=== PATIENT | male | born 1955 | race Caucasian/White ===

== ENCOUNTER → 2018-12-11 | Day surgery (SDC) | payer BC, MEDICARE ==
--- NOTE | 2018-12-10 09:51 | Diagnostic Imaging Report ---
EXAMINATION: CHEST 2 VIEWS INDICATION: Pre-op. COMPARISON: None FINDINGS: TUBES and LINES: None. LUNGS: Lungs are well inflated. There is no evidence of pneumonia or pulmonary edema. Small rounded opacity overlying the right lower lung likely represents nipple shadow. PLEURA: No pleural effusion or pneumothorax. HEART AND MEDIASTINUM: The cardiomediastinal silhouette is unremarkable. BONES AND SOFT TISSUES: No acute osseous abnormality. UPPER ABDOMEN: No free air under the diaphragm. IMPRESSION: No acute radiographic abnormality. Signed by: Dr. Kenyon Napoles MD on 12/10/2018 9:47 AM
[2018-12-10 10:11] LABS: BASOPHILS # (AUTO) 0.1 (0.0-0.1); BASOPHILS % 0.6 % (0.0-1.0); EOSINOPHILS # (AUTO) 0.3 (0.0-0.4); EOSINOPHILS % 2.6 % (0.0-6.0); HEMATOCRIT 43.1 % (38.2-49.6); HEMOGLOBIN 14.6 g/dL (14.0-18.0); LYMPHOCYTES # (AUTO) 2.1 (1.0-3.2); MEAN CORPUSCULAR HEMOGLOBIN 32.2 pg (28-32); MEAN CORPUSCULAR HGB CONC 33.9 g/dL (31-35); MEAN CORPUSCULAR VOLUME 95.1 fL (81-99); MONOCYTES # (AUTO) 0.9 (0.2-0.8); MONOCYTES % 8.7 % (4.4-11.3); NEUTROPHILS # (AUTO) 7.5 (2.1-6.9); NEUTROPHILS % 68.8 % (38.7-80.0); PLATELET COUNT 248 x10e3/uL (140-360); RED BLOOD COUNT 4.53 x10e6/uL (4.3-5.7)
[2018-12-10 10:57] LABS: ANION GAP 14.6 mmol/L (8-16); BLOOD UREA NITROGEN 16 mg/dL (7-26); BUN/CREATININE RATIO 14 (6-25); CALCIUM 10.3 mg/dL (8.4-10.2); CARBON DIOXIDE 28 mmol/L (22-29); CHLORIDE 102 mmol/L (98-107); CREATININE, SERUM 1.12 mg/dL (0.72-1.25); EST GLOMERULAR FILTRATION RATE > 60 ML/MIN (60-); GLUCOSE 107 mg/dL (74-118); POTASSIUM 4.6 mmol/L (3.5-5.1); SODIUM 140 mmol/L (136-145)
[~2018-12-11] MED LIST: ASPIR 8181 MG PO; ATORVASTATIN CA20 MG PO; BUPIVACAINE HCL 0.5% INJ 30 ML VIAL INJ ONE; CARVEDILOL12.5 MG PO; CEFAZOLIN SOD 1 GM/NS 50ML 50 ML IV ONE; CLOPIDOGREL75 MG PO; DEXAMETHASONE SOD PHOS INJ 4 MG/ML VIAL ONE; EPHEDRINE SULFATE INJ 50 MG/10 ML SYR ONE; FENTANYL CITRATE/PF 100MCG/2 ML INJ ONE; GLYCOPYRROLATE INJ 1MG/ 5 ML SYR ONE; IRON PO; LIDOCAINE HCL 2% LOCAL INJ 5 ML SDV VIAL INJ ONE; MIDAZOLAM HCL 2 MG/2 ML VIAL ONE; MULTIVITAMINS1 EAC7 PO; MUPIROCIN 2% OINT 22 GM TUBE ONE; ONDANSETRON HCL INJ 2MG/ML 2ML 2 MG/ML VIAL ONE; PROPOFOL IV EMULSION 10 MG/ML 20 ML VIAL ONE; SEVOFLURANE INHAL SOLN 250 ML PEN BTL ONE; TRIBENZOR 40-11 EACH PO
--- OUTSIDE RECORDS SUMMARY | 2018-12-11 06:45 | XMS REPORT ---
Author Author [facility] Address Unknown Phone Unavailable Care Team Providers Care Computer Support Analyst Name Role Phone JACQUELIN BLANC Unavailable Unavailable Problems This patient has no known problems. Allergies, Adverse Reactions, Alerts This patient has no known allergies or adverse reactions. Medications This patient has no known medications. Results Test Description Test Time Test Comments Text Results Atomic Results Result Comments CHEST 2 VIEWS 2018-12-10 09:42:00 [place] [address] Patient Name: ALIDA WATTERS MR #: [id number] : 1955 Age/Sex: 63/M Req #: [id number] [facility] Physician: Ordered by: JACQUELIN BLANC MD Report #: [id number] Location: OR Room/Bed: Procedure: [id number] DX/CHEST 2 VIEWS Exam Date: 12/10/18 Exam Time: 920 REPORT STATUS: Signed EXAMINATION: CHEST 2 VIEWS INDICATION: Pre-op. COMPARISON: None FINDINGS: TUBES and LINES: None. LUNGS: Lungs are well inflated. There is no evidence of pneumonia or pulmonary edema. Small rounded opacity overlying the right lower lung likely represents nipple shadow. PLEURA: No pleural effusion or pneumothorax. HEART AND MEDIASTINUM: The cardiomediastinal silhouette is unremarkable. BONES AND SOFT TISSUES: No acute osseous abnormality. UPPER ABDOMEN: No free air under the diaphragm. IMPRESSION: No acute radiographic abnormality. Signed by: Dr. Alireza Duncan MD on 12/10/2018 9:47 AM Dictated By: ALIREZA DUNCAN MD 6 Transcribed By: BILL on 12/10/18946 COPY TO: JACQUELIN BLANC MD
[2018-12-11 11:30] VITALS: BP 140/74
--- NOTE | 2018-12-11 20:05 | Operative Report ---
DATE OF PROCEDURE: 12/11/2018 SURGEON: Martinez Alvarado MD PREOPERATIVE DIAGNOSIS: Dupuytren contracture, right palm/right long finger. POSTOPERATIVE DIAGNOSIS: Dupuytren contracture, right palm/right long finger. PROCEDURES: Excision of Dupuytren cord, right palm and long finger with Z-plasty closure. ANESTHESIA: General. HISTORY: The patient is a 63-year-old male, who presents with a Dupuytren cord and a resultant right long finger MP flexion contracture of more than 30 degrees. The risks, benefits, and alternatives of treatment were discussed with the patient. He is prepared to undergo the procedure as outlined. DESCRIPTION OF PROCEDURE: The patient was marked preoperatively in the holding area. He was brought to the operating theater and after the induction of adequate general anesthesia, he is prepped and draped in a supine position and a time-out was performed. A longitudinal incision was marked out over the prominence of the cord from its most proximal palpable point to its distal extent, which corresponds to just distal to the PIP joint flexion crease. The right upper extremity was then exsanguinated and the tourniquet inflated to a pressure of 250 mmHg. The incision was started proximally with a #15 blade directly over the cord through the skin and subcutaneous tissues. The incision is carried directly onto the fascial cord. Using sharp dissection, the skin flaps were elevated off their dense attachments to the fascial cord, starting from proximal to distal. At the level of the MP flexion crease, the skin was incised only down to the level of the cord. Further dissection is pending the positive identification of the radial and ulnar neurovascular bundles. At this point, with the skin flaps proximally elevated off the cord and the adjacent palmar fascia, a hemostat was used to bluntly enter the palmar fascia directly beneath the cord and the palmar fascia was then elevated out of the plane of the palm. The cord was transected proximally with a #15 blade. At this point, blunt dissection on both the radial and ulnar side of the cord was performed in both neurovascular bundles containing the artery and digital nerve are identified. Using the neurovascular bundles as a guide, the dissection continues from proximal to distal, transecting the palmar fascia with all of its vertical extensions to the intrinsic muscles, keeping the neurovascular bundles inside and protected at all times. The dissection continues to the level of the MP flexion crease. At this point, it was noted that the radial digital nerve was deviated ulnarwards towards the midline of the finger. The dissection continues distally along the radial side of the finger, keeping the radial digital nerve and artery in site until the level of the PIP joint flexion crease when the cord terminates. Attention was then turned to the ulnar side of the finger, where the dissection was carried out, keeping the ulnar neurovascular bundle in site at all times. The dense attachments to the dermis are transected and all of the vertical extensions taken down as well. Once the dissection continues past the PIP flexion crease, the subfascial cord terminates and the entire specimen was removed on block and sent for permanent pathologic examination. At this point, the tourniquet was deflated and all bleeding points were coapted using the bipolar cautery. The finger pinked up nicely and has good 2 seconds capillary refill distally. The wound was irrigated with bacteriostatic saline and then closed with 5-0 nylon in an interrupted horizontal mattress fashion. At the level of the MP flexion crease, a Z-plasty was designed and closed with 5-0 nylon as well. A Marcaine field block was performed at the operative site, a total of 15 mL was used. Bactroban ointment, Xeroform gauze, and a sterile dressing are applied to the fingers, palm, wrist, and forearm, and then a fiberglass splint was fashioned to maintain the wrist in a modest amount of extension, the MPs approximately 60 to 70 degrees and the IPs neutral. This was held in place with a loosely wrapped Ronny wrap. The patient tolerated the procedure well, was brought to recovery room in satisfactory condition and discharged with a postoperative instruction sheet as well as a followup appointment. MD ABENA Louis/HILDA /[id number]
== END | disposition home or self-care (01) ==
LOC: OR 06:34
PROVIDERS: ATTEND Plastic Surgery
DX: M72.0 Palmar fascial fibromatosis [Dupuytren] (principal); I25.10 Atherosclerotic heart disease of native coronary artery without angina pectoris; I10 Essential (primary) hypertension; F17.210 Nicotine dependence, cigarettes, uncomplicated; Z88.3 Allergy status to other anti-infective agents; Z01.810 Encounter for preprocedural cardiovascular examination; Z01.812 Encounter for preprocedural laboratory examination; Z01.818 Encounter for other preprocedural examination; Z79.82 Long term (current) use of aspirin; Z79.02 Long term (current) use of antithrombotics/antiplatelets; Z95.5 Presence of coronary angioplasty implant and graft
CPT/HCPCS: 26123; 36415; 71046; 80048; 85025; 88305; 93005; J0690; J1100; J2001; J2250; J2405; J2704; J3490; 88304